=== PATIENT | female | born 1995 | race Caucasian/White ===

== ENCOUNTER 2016-12-04 09:34 | Emergency (ER) | payer BC, OTHER ==
[2016-12-04 10:00] LABS: Hematocrit 42.6 % (37.0-47.0); Hemoglobin 14.8 gm/dL (12.5-16.0); Mean Cell Volume 90.8 fl (78-100); Mean Corpuscular Hemoglobin 31.6 pg (27-31); Mean Corpuscular Hgb Conc 34.7 g/dl (32-36); Mean Platelet Volume 11.5 fl (6.0-9.5); Neutrophil # 7.3 K/mm3 (1.3-6.0); Neutrophil % 67.7 % (42-75.0); Platelet Count 211 K/mm3 (150-450); Red Blood Count 4.69 M/mm3 (4.2-5.4); Red Cell Distribution Width 11.6 % (11.5-14.0); White Blood Count 10.7 K/mm3 (4.0-10.5)
[2016-12-04 10:11] LABS: Prothrombin Time (Patient) 11.1 Seconds (9.4-11.4)
[2016-12-04 10:15] LABS: INR 1.07 INR (0.90-1.10); Partial Thrombolplastin Time 28.9 Seconds (24-32)
[2016-12-04 10:20] LABS: ALT 25 U/L (19-67); AST 19 U/L (0-48); Albumin * 4.4 gm/dl (3.4-5.0); Alkaline Phosphatase * 83 U/L (50-170); Anion Gap 14.5 mmol/L (6.8-13.8); Bilirubin, Total 0.6 mg/dL (0.0-1.1); Blood Urea Nitrogen 8 mg/dL (3-23); Ca. Corrected For Albumin 8.5 mg/dL (8.4-10.2); Calcium * 9.1 mg/dL (7.9-10.9); Carbon Dioxide 26.2 mmol/L (24-32.6); Chloride 102 mmol/L (97-106); Glucose * 98 mg/dL (70-110); Potassium 3.7 mmol/L (3.4-4.6); Sodium 139 mmol/L (132-142); Total Protein 8.2 gm/dL (6.2-8.2); Troponin I Less than 0.017 ng/ml (0.00-0.10)
[2016-12-04] MEDS ORDERED: MAG HYDROX/ALUMINUM HYD/SIMETH 30 ML UDC PO ONE (11:22)
[2016-12-04] MEDS ORDERED: BELLADONNA ALKALOIDS/PHENOBARB 60 ML BTL PO ONE (11:22)
[2016-12-04] MEDS ORDERED: LIDOCAINE HCL 20 ML UDC PO ONE (11:22)
--- NOTE | 2016-12-04 11:22 | ERNOTE ---
Chest Pain/Cardiac HPI Date of Service: 12/04/16 Chief Complaint: Chest Pain Time Seen by Provider: 12/04/16 11:06 Source: patient, RN notes reviewed Exam Limitations: no limitations Immunizations: IMMUNIZATION HX Immunizations Up to Date Yes History of Influenza Vaccine Yes Hx Pneumococcal Vaccination No Allergies/Adverse Reactions: Allergies No Known Allergies Allergy (Verified 12/04/16 09:48) Home Medications: HOME MEDICATIONS Levothyroxine Sodium [Synthroid] 75 mcg PO DAILY 12/04/16 [Last Taken Unknown] Polyethylene Glycol 3350 [Miralax] 17 gm PO DAILY 12/04/16 [Last Taken Unknown] Sertraline HCl [Zoloft] 50 mg PO DAILY 12/04/16 [Last Taken Unknown] Pain Score #1 Pain Score: 6 Narrative: 21 y/o female ambulatory to the ED for midsternal chest pain that has been intermittent for 2 weeks. The pain is usually accompanied by tachycardia and palpitations. She has not been taking anything for pain. She has been being treated for hypothyroidism for several years. She felt that her thyroid function was "off" and she was found to have a TSH of 8. Her medication was adjusted at that time. She also has anxiety and was started on sertraline at that time. She was also prescribed a beta sunita for tachycardia and anxiety, but she does not start this until tomorrow. She had strep throat approx a week and a half ago. The chest pain was occurring prior to the illness and has continued despite its resolution. Timing: intermittent Severity/Quality: moderate, aching Location: substernal, central Chest Pain Radiation: no radiation Activities at Onset: none Modifying Factors - Improves: Absent: eating, exercise, position, movement, rest Modifying Factors - Worsens: Absent: eating, exercise, position, movement, rest Nitro Today/Relief: no nitro taken today Aspirin Treatment Today: no aspirin today Associated Symptoms: Present: palpitations, abdominal pain. Absent: headache, dizziness, syncope, cough, shortness of breath, diaphoresis, fever/chills, heartburn, nausea, vomiting, weakness, back pain, swelling/lump in chest Prior Chest Pain/Cardiac Workup: Reports: no prior cardiac workup Prior Treatment: Reports: recently seen, treated by physician. Denies: currently on antibiotics Review of Systems - Review of Systems Constitutional: Present: recent illness, fatigue, malaise. Absent: diaphoresis EYE: Present: no symptoms reported ENT: Absent: nose congestion, sore throat Respiratory: Absent: shortness of breath, cough Cardiology: Present: chest pain, palpitations. Absent: syncope, edema Gastrointestinal/Abdominal: Present: abdominal pain. Absent: nausea, vomiting, diarrhea, constipation, eating less, drinking less Genitourinary: Present: no symptoms reported Musculoskeletal: Absent: back pain, muscle pain Skin: Absent: rash, lesions Neurological: Absent: headache, dizziness/light-headedness, tingling, tremors Endocrine: Present: no symptoms reported Hematologic/Lymphatic: Present: no symptoms reported Psych: Present: anxiety. Absent: depressed - Patient's Past Medical History Patient History - Medical: ADHD, Hypothyroidism Patient History - Cardiac/Respiratory: Asthma Patient History - Cancer: No Hx of Cancer Patient History - Surgical Procedures: T & A Patient History - Other: None LMP (females 10-50): last week - Social History Living Situations: significant other Abuse History: No History of abuse Psych History: No pertinent hx Smoking Status: Never smoker Do you dip or chew tobacco: No Alcohol Use: none Drug Use: none - Immunizations Immunizations Up to Date: Yes Hx Pneumococcal Vaccination: No History of Influenza Vaccine: Yes Physical Exam - Physical Exam General Appearance: Present: wd/wn, alert, no apparent distress Eye Exam: Normal inspection: bilateral Neck: Present: normal inspection, nontender, supple Respiratory: Present: no respiratory distress, normal breath sounds, no accessory muscle use, chest nontender, lungs clear Cardiovascular/Chest: Present: regular rate, rhythm, no murmur, normal peripheral pulses, tachycardia Gastrointestinal/Abdominal: Present: normal bowel sounds, nondistended, soft, tenderness - mild - epigastric Extremity Exam: Present: normal inspection, normal range of motion, no edema Neurological Exam: Present: alert, oriented, normal mood/affect, no motor/ sensory deficits Skin Exam: Present: normal color, warm/dry ED Progress - Results and Orders Patient's Lab Results:: I have reviewed the patient's lab results. - Vital Signs Patient's Vital Signs:: I have reviewed the patient's vital signs. Vital Signs: Vital Signs 12/04/16 12/04/16 12/04/16 09:35 09:47 10:20 Temperature 37.1 C Pulse Rate 117 H 115 H 93 Respiratory 15 20 Rate Blood Pressure 160/102 151/83 O2 Sat by Pulse 99 97 Oximetry 12/04/16 12/04/16 10:31 10:46 Temperature Pulse Rate 102 H 88 Respiratory 15 27 H Rate Blood Pressure 150/88 143/83 O2 Sat by Pulse 97 95 Oximetry - EKG EKG: other - sinus tach, nonspecific ST changes, no previous EKG read: Reviewed by me - X-Ray X-Ray #1 X-Ray: chest Interpretation: Reviewed by me X-ray Comments: TECHNIQUE: 4 views of the Left sided ribs. COMPARISONS: 05/13/2016 Ribs Unilateral LT * Cortical thickening and mineralized callus suggested at the anterolateral aspects of the left seventh, eighth, and ninth ribs suggestive of healing fractures. Visualized portions of the chest grossly normal. IMPRESSION: 1. Healing fractures of the anterolateral left seventh, eighth, ninth ribs. 2. Additional comments are as above. Electronically signed by Iwona Owen M.D.. - Progress/Reassessment Chief Complaint: Chest Pain Progress:: Improved Plan - Plan Plan: Pain decreased from 02/07 to 09/09 with GI cocktail. Discussed need for further evaluation of tachycardia, but also the issue of waiting until her recent med changes have had time to take effect. Has f/u with PCP next week. Agreeable to returning if pain worsens. Departure - Departure Clinical Impression: Chest pain Qualifiers: Chest pain type: unspecified Qualified Code(s): R07.9 - Chest pain, unspecified Disposition: Home Follow Up Needed Condition: Stable Instructions: Form - Excuse from Work, School, or Physical Activity, Chest Wall Pain Additional Instructions: Continue your current medications Return if symptoms worsen, otherwise see your PCP as scheduled OK to try Tylenol and/or ibuprofen for pain Referrals: Lupis Issa ARNP [Primary Care Provider] -
--- OUTSIDE RECORDS SUMMARY | 2016-12-04 11:33 | XMS REPORT | Continuity of Care Document ---
:1995 Author Organization [facility] ([facility]) Address [address] [place] [address] Phone [phone] Care Team Providers Name Role Phone Van Lo Primary Care Provider [phone] Source Comments This disclosure is being made pursuant to the Care Everywhere program, applicable federal and state laws, and may not contain all informaitonavailable regarding this patient.[facility] ([facility]) Active Allergies and Adverse Reactions No Known Allergies Current Medications Prescription Sig. Disp. Refills Start Date End Date Status omeprazole 20 mg Take 20 mg by mouth Active enteric coated capsule daily levothyroxine 50 mcg Take 50 mcg by Active tablet mouth every morning before breakfast lisdexamfetamine Take 30 mg by mouth Active (VYVANSE) 30 mg daily capsule norgestimate-ethinyl Take 1 tablet by Active estradiol triphasic mouth daily (ORTHO TRI-CYCLEN) tablet ALPRAZolam 0.25 mg Take 0.25 mg by Active tablet mouth daily as needed HYDROcodone-acetaminop Take 1 tablet by 20 tablet 0 08/28/2015 Active hen 5-325 mg per mouth every 4 hours tablet as needed for Pain DO NOT EXCEED 3,000 MG ACETAMINOPHEN PER DAY FROM ALL SOURCES ibuprofen 800 mg Take 1 tablet (800 20 tablet 0 08/28/2015 Active tablet mg total) by mouth every 6 hours as needed for Pain DO NOT EXCEED 3,200 MG IBUPROFEN PER DAY FROM ALL SOURCES chlorhexidine 0.12 % Rinse with 10 ML 473 mL 0 08/28/2015 Active oral rinse for 30 seconds twice daily for 10 days. Swish and spit out excess. Nothing by mouth for 30 minutes. ondansetron 4 mg Take 1 tablet (4 mg 12 tablet 0 08/28/2015 Active disintegrating tablet total) by mouth every 8 hours as needed Active Problems Problem Noted Date Hypothyroid 07/31/2015 Impacted teeth 07/31/2015 Social History Tobacco Use Types Packs/Day Years Used Date Never Smoker Smokeless Tobacco: Never Used Alcohol Use Drinks/Week oz/Week Comments No Last Filed Vital Signs Vital Sign Reading Time Taken Blood Pressure 139/75 08/28/2015 11:37 AM CAR MANAGER Pulse 98 08/28/2015 10:34 AM CAR MANAGER Temperature 37.1 C (98.8 F) 08/28/2015 10:34 AM CAR MANAGER Respiratory Rate 16 08/28/2015 10:34 AM CAR MANAGER Height 1.6 m (5' 3") 08/28/2015 10:30 AM CAR MANAGER Weight 65.5 kg (144 lb 6.4 oz) 08/28/2015 10:30 AM CAR MANAGER Body Mass Index 25.59 08/28/2015 10:30 AM CAR MANAGER Oxygen Saturation 100% 08/28/2015 11:37 AM CAR MANAGER Plan of Care Health Maintenance Due Date Last Done Comments Hepatitis B Vaccine (1 of 3 - Primary Series) 1996 HPV Vaccine (1 of 3 - Female/Unknown 3 Dose Series) 02/22/2007 Tdap Vaccine 02/22/2007 Meningococcal Vaccine (1 of 1) 2012 Lipid Disorder Screening 02/22/2014 MMR Vaccine 02/22/2014 Td Vaccine 02/22/2014 Varicella Vaccine (1 of 2 - Adult - No Evidence of 02/22/2014 Immunity) Influenza Vaccine: Seasonal (#1) 03/31/2016 Results from Last 3 Months Not on file
[2016-12-04 12:28] VITALS: BP 147/91
== END 2016-12-04 12:12 | disposition home or self-care (01) ==
LOC: ER 09:34
DX: R07.9 Chest pain, unspecified (principal); E03.9 Hypothyroidism, unspecified

== ENCOUNTER 2017-09-10 10:52 | Emergency (ER) | payer OTHER ==
[2017-09-10 11:19] VITALS: BP 139/80
== END 2017-09-10 11:40 | disposition left against medical advice (07) ==
LOC: ER 10:52
DX: Z53.21 Procedure and treatment not carried out due to patient leaving prior to being seen by health care provider (principal)

== ENCOUNTER 2018-04-08 14:54 | Observation (INO) ==
[2018-04-08] MEDS ORDERED: RINGER'S SOLUTION,LACTATED 1,000 ML IV PRN (15:15)
[2018-04-08] MEDS ORDERED: PENICILLIN G POTASSIUM 5 MILLIONUNT in DEXTROSE 5 % IN WATER 100 ML IV ONE ×2 (17:34)
[2018-04-08] MEDS ORDERED: BETAMETHASONE ACETATE,SOD PHOS 6 MG/ML VIAL IM SCH (17:45)
[2018-04-08] MEDS: NIFEdipine 10 MG CAPSULE PO PRN ×2 (17:56→21:47)
[2018-04-08] MEDS: RINGER'S SOLUTION,LACTATED 1,000 ML IV PRN ×2 (17:56→21:08)
[2018-04-08 17:57] LABS: Hematocrit 34.3 % (37.0-47.0); Hemoglobin 11.4 gm/dL (12.5-16.0); Mean Corpuscular Hemoglobin 30.2 pg (27-31); Mean Corpuscular Hgb Conc 33.2 g/dl (32-36); Mean Platelet Volume 11.9 fl (8-12.5); Neutrophil # 7.2 K/mm3 (1.3-6.0); Neutrophil % 67.6 % (42-75.0); Platelet Count 196 K/mm3 (150-450); Red Blood Count 3.77 M/mm3 (4.2-5.4); Red Cell Distribution Width 12.4 % (11.5-14.0); White Blood Count 10.7 K/mm3 (4.0-10.5)
[2018-04-08] MEDS: BUTORPHANOL TARTRATE 2 MG/ML VIAL IV PRN ×2 (18:49→23:03)
[2018-04-08] MEDS ORDERED: TOPIRAMATE 50 MG TABLET ONE (20:56)
[2018-04-08] MEDS ORDERED: METOPROLOL SUCCINATE 25 MG TABLET.SA PO SCH (21:00)
[2018-04-08] MEDS ORDERED: PENICILLIN G POTASSIUM 2.5 MILLIONUNT in DEXTROSE 5 % IN WATER 100 ML IV SCH ×2 (21:37)
[2018-04-08 21:48] VITALS: BP 156/62
--- NOTE | 2018-04-08 23:23 | HP ---
Chief Complaint - Chief Complaint Date of Service: 04/08/18 Time of Service: 23:22 Chief Complaint: painful contractions History of Present Illness: 23 yo at 33 6/7 wks presents to L&D complaining of contractions of increased intensity. Patient originally presented to office for routine OB visit/NST due to CHTN with PSVT where she was noted to have contractions q8-10 min. She was sent to L&D for prolonged monitoring. During this time her contractions increased in intensity and frequency and so she was admitted for 23 hour observation for threatened PTL. This complicated by asthma, CHTN, tachycardia, hypothyroidism, threatened PTL and AADHD/anxiety/depression. Rh positive RI GBS pending Medical History (Last Updated 03/09/18 @ 08:10 by Azucena Ward) Anxiety and depression Onset Date: Unknown Hypertension Onset Date: Unknown Hypothyroidism Onset Date: Unknown ADHD Onset Date: Unknown Asthma Onset Date: ~2000 Surgical History: Surgical History (Last Updated 03/09/18 @ 08:10 by Azucena Boss) History of tonsillectomy and adenoidectomy Onset Date: Unknown Family History: Family History (Last Updated 03/09/18 @ 08:16 by Azucena Boss) Father Alive and well Grandfather Cancer Grandfather Diabetes Eye cancer Grandmother Diabetes Cancer Hypertension Obesity Mother Alive and well Social History: Preferred Language Sami Do you have any latter day or No cultural preference? Abuse History No History of abuse Psych History Hx of Depression,Currently on Meds Review Of Systems (GEN) - Review of Systems EENTM: Present: No Symptoms Reported Respiratory: Present: No Symptoms Reported Cardiac: Present: No Symptoms Reported Abdominal: Present: Other - contractions Genitourinary: Present: No Symptoms Reported Musculoskeletal: Present: No Symptoms Reported Neurological: Present: No Symptoms Reported Skin: Present: No Symptoms Reported Endocrine: Present: No Symptoms Reported Immunizations: IMMUNIZATION HX Immunizations Up to Date Yes History of Influenza Vaccine No Hx Pneumococcal Vaccination No Allergies/Adverse Reactions: Allergies Allergy/AdvReac Type Severity Reaction Status Date / Time No Known Allergies Allergy Verified 04/08/18 15:19 Home Medications: HOME MEDICATIONS Levothyroxine Sodium [Synthroid] 75 mcg PO DAILY 12/04/16 [Last Taken 04/08/18] Venlafaxine HCl [Venlafaxine HCl ER] 150 mg PO DAILY 02/22/18 [Last Taken ] vitamin,calcium,luoxrubl-gocu-guxsz acid tablet 1 tab PO DAILY [Last Taken 04/07/18] Metoprolol Succinate [Toprol Xl] 37.5 mg PO BID 04/08/18 [Last Taken 04/08/18 12 :00] Exam - Exam Vital Signs: Vital Signs - Last Taken Temp 36.6 C 04/08/18 15:45 Pulse 82 04/08/18 21:47 Resp 16 04/08/18 15:45 BP 156/62 H 04/08/18 21:47 Pulse Ox 98 04/08/18 15:45 Constitutional: Present: Alert, Oriented x3, Cooperative, Mild distress, Overweight ENT Exam: Present: hearing grossly normal Neck: Present: non-tender Breasts: Present: Exam deferred Respiratory: Present: lungs clear, no respiratory distress Cardiovascular/Chest: Present: normal peripheral pulses, regular rate, rhythm, no chest tenderness, no edema Abdomen: Present: soft, nontender, other - gravid /Rectal: Present: Other - cervix FT/50/-3 Extremity: Present: non-tender, no pedal edema, no calf tenderness Skin Exam: Present: normal color, warm/dry, no cyanosis Neurologic: Present: normal mood/affect, oriented x 3 Appearance: Present: appropriate appearance, appropriate insight Eye contact: Present: cooperative, good eye contact, normal speech Thoughts: Present: normal thought pattern Diagnostic Studies: Abnormal Lab Results 04/08/18 Range/Units 17:55 WBC 10.7 H (4.0-10.5) K/mm3 RBC 3.77 L (4.2-5.4) M/mm3 Hgb 11.4 L (12.5-16.0) gm/dL Hct 34.3 L (37.0-47.0) % Immature Gran % (Auto) 1.60 H (0.001-0.429) % Immature Gran # (Auto) 0.17 H (0.000-0.0310) K/mm3 Lymphocytes % 19.1 L (20-51) % Monocytes % 10.5 H (0.0-9) % Neutrophils # 7.2 H (1.3-6.0) K/mm3 Monocytes # 1.1 H (0.0-1.0) k/mm3 Laboratory Results WBC 10.7 K/mm3 (4.0-10.5) H 04/08/18 17:55 RBC 3.77 M/mm3 (4.2-5.4) L 04/08/18 17:55 Hgb 11.4 gm/dL (12.5-16.0) L 04/08/18 17:55 Hct 34.3 % (37.0-47.0) L 04/08/18 17:55 MCV 91.0 fl (78-100) 04/08/18 17:55 MCH 30.2 pg (27-31) 04/08/18 17:55 MCHC 33.2 g/dl (32-36) 04/08/18 17:55 RDW 12.4 % (11.5-14.0) 04/08/18 17:55 Plt Count 196 K/mm3 (150-450) 04/08/18 17:55 MPV 11.9 fl (8-12.5) 04/08/18 17:55 Immature Gran % (Auto) 1.60 % (0.001-0.429) H 04/08/18 17:55 Immature Gran # (Auto) 0.17 K/mm3 (0.000-0.0310) H 04/08/18 17:55 Neutrophils % 67.6 % (42-75.0) 04/08/18 17:55 Lymphocytes % 19.1 % (20-51) L 04/08/18 17:55 Monocytes % 10.5 % (0.0-9) H 04/08/18 17:55 Eosinophils % 0.9 % (0.0-3.0) 04/08/18 17:55 Basophils % 0.3 % (0.0-1.0) 04/08/18 17:55 Nucleated RBC % 0.0 k/mm3 (0-1) 04/08/18 17:55 Neutrophils # 7.2 K/mm3 (1.3-6.0) H 04/08/18 17:55 Lymphocytes # 2.04 k/mm3 (1.5-3.5) 04/08/18 17:55 Monocytes # 1.1 k/mm3 (0.0-1.0) H 04/08/18 17:55 Eosinophils # 0.1 k/mm3 (0.0-0.7) 04/08/18 17:55 Absolute Basophils 0.0 k/mm3 (0.0-0.1) 04/08/18 17:55 NST reactive Assessment/Plan - Assessment/Plan (1) Threatened labor Assessment: 23h observation. IV PCN for GBS prophylaxis. Betamethasone (1st dose at 1757 on 04/08/18). Nifedipine 20mg q4-6h PRN contractions. Problem: Acute Qualifiers: Trimester: third trimester Qualified Code(s): O47.03 - False labor before 37 completed weeks of gestation, third trimester (2) Chronic hypertension during Problem: Acute (3) Hypothyroid in , antepartum Problem: Acute (4) Tachycardia with heart rate 100-120 beats per minute Problem: Acute
[2018-04-08 23:38] LABS: Albumin * 2.5 gm/dl (3.4-5.0); Anion Gap 14.8 mmol/L (6.8-13.8); BUN/Creatinine Ratio 15.1 (9.0-21.6); Bilirubin, Total 0.2 mg/dL (0.0-1.1); Ca. Corrected For Albumin 9.6 mg/dL (8.4-10.2); Calcium * 8.7 mg/dL (7.9-10.9); Carbon Dioxide 23.3 mmol/L (24-32.6); Potassium 4.1 mmol/L (3.4-4.6); Total Protein 5.8 gm/dL (6.2-8.2)
[2018-04-09] MEDS ORDERED: CALCIUM GLUCONATE 4.65 MEQ/10 ML VIAL IV PRN (00:20)
[2018-04-09] MEDS ORDERED: MAGNESIUM SULFATE IN WATER 50 ML, MAGNESIUM SULFATE IN WATER 50 ML IV ONE ×2 (00:20)
[2018-04-09] MEDS ORDERED: MAGNESIUM SULFATE IN WATER 1,000 ML IV SCH (00:30)
[2018-04-09 00:42] LABS: Random Urine Total Protein Less than 6.0 mg/dL (0-12)
[2018-04-09 00:48] LABS: Mean Cell Volume 90.9 fl (78-100); Mean Corpuscular Hemoglobin 30.3 pg (27-31); Mean Corpuscular Hgb Conc 33.3 g/dl (32-36); Mean Platelet Volume 11.9 fl (8-12.5); Neutrophil # 11.5 K/mm3 (1.3-6.0); Neutrophil % 87.7 % (42-75.0); Platelet Count 226 K/mm3 (150-450); Red Blood Count 4.29 M/mm3 (4.2-5.4); Red Cell Distribution Width 12.2 % (11.5-14.0); White Blood Count 13.2 K/mm3 (4.0-10.5)
--- NOTE | 2018-04-09 00:54 | PN ---
Subjective - Date and Time Seen Date: 04/09/18 Time: 00:26 Subjective Narrative: Patient complains of worsening pain with contractions. Also worsening headache. Denies visual changes or epigastric pain. Objective - Review of Systems Generalized/Overall Review: Reports: No Symptoms Reported EENTM: Reports: No Symptoms Reported Respiratory: Reports: No Symptoms Reported Cardiac: Reports: No Symptoms Reported Abdominal: Reports: Other - contractions Genitourinary Symptoms: Reports: No Symptoms Reported Musculoskeletal Complaints: Reports: No Symptoms Reported Neurological: Reports: Headache Skin: Reports: No Symptoms Reported Endocrine: Reports: No Symptoms Reported - Vitals Vitals: Last Vital Signs Temp 36.6 C 04/08/18 15:45 Pulse 82 04/08/18 21:47 Resp 16 04/08/18 15:45 BP 156/62 H 04/08/18 21:47 Pulse Ox 98 04/08/18 15:45 - Abnormal Lab Findings Abnormal Lab Findings: Abnormal Lab Results 04/08/18 04/08/18 Range/Units 17:55 23:25 WBC 10.7 H (4.0-10.5) K/mm3 RBC 3.77 L (4.2-5.4) M/mm3 Hgb 11.4 L (12.5-16.0) gm/dL Hct 34.3 L (37.0-47.0) % Immature Gran % (Auto) 1.60 H (0.001-0.429) % Immature Gran # (Auto) 0.17 H (0.000-0.0310) K/mm3 Lymphocytes % 19.1 L (20-51) % Monocytes % 10.5 H (0.0-9) % Neutrophils # 7.2 H (1.3-6.0) K/mm3 Monocytes # 1.1 H (0.0-1.0) k/mm3 Carbon Dioxide 23.3 L (24-32.6) mmol/L Anion Gap 14.8 H (6.8-13.8) mmol/L Est GFR (Non-Af Amer) 153 H (60-130) mL/min ALT 16 L (19-67) U/L Total Protein 5.8 L (6.2-8.2) gm/dL Albumin 2.5 L (3.4-5.0) gm/dl - Exam Constitutional: Present: Alert, Oriented x3, Cooperative, Mild distress, Obese ENT Exam: Present: hearing grossly normal Breasts: Present: Exam deferred Respiratory: Present: lungs clear, no respiratory distress, No wheezing Cardiovascular/Chest: Present: normal peripheral pulses, no edema, tachycardia Abdomen: Present: soft, no rebound tenderness /Rectal: Present: Other - gravid uterus, upper fundus tender Extremity: Present: non-tender, no pedal edema, no calf tenderness Skin Exam: Present: normal color, warm/dry, no cyanosis Lymphatic: Present: no adenopathy Neurologic: Present: normal mood/affect, oriented x 3, other - DTR 3+, 3 beat clonus Appearance: Present: appropriate appearance Eye contact: Present: cooperative, good eye contact, normal speech Assessment/Plan - Problems/Diagnosis (1) Threatened labor Problem: Acute Qualifiers: Trimester: third trimester Qualified Code(s): O47.03 - False labor before 37 completed weeks of gestation, third trimester Narrative: Cervix is slowly changing from FT/50/-3 to 1-2/50/-2 despite tocolytics. Contractions continue to increase in frequency and intensity. Stadol 2mg IV q 2h provides temporary partial relief. (2) Chronic hypertension during Problem: Acute (3) Hypothyroid in , antepartum Problem: Acute (4) Tachycardia with heart rate 100-120 beats per minute Problem: Acute (5) Pre-eclampsia complicating hypertension Problem: Acute Narrative: Blood pressures increasing despite on 2 anti-hypertensive agents and developing severe features of headache and hyper-reflexia with clonus. Increased risk for abruption with contractions q [address] Hernandez at [facility] who is willing to accept transfer. Will transfer via ambulance with patient on magnesium sulfate IV (6g load, 2g/h) and continue IV PCN for GBS prophylaxis since cx results pending. S/p betamethasone at 1757 on 04/08/18.
[2018-04-09] MEDS ORDERED: LEVOTHYROXINE SODIUM 75 MCG TABLET PO SCH (07:00)
[2018-04-09] MEDS ORDERED: PRENATAL VITS96/IRON FUM/FOLIC 1 TAB TABLET PO SCH (09:00)
[2018-04-09] MEDS ORDERED: VENLAFAXINE HCL 150 MG CAP.SR.24H PO SCH (09:00)
== END 2018-04-09 01:25 | disposition short-term general hospital (02) ==
LOC: OB 14:54 → OBCLINIC 14:54
PROVIDERS: ADMIT Obstetrics & Gynecology; ATTEND Obstetrics & Gynecology
CPT/HCPCS: 36415; 59025; 80053; 82570; 84155; 84156; 85025; 96361; 96365; 96366; 96372; 96375; 96376; G0378

== ENCOUNTER 2018-05-01 13:56 | Inpatient (IN) ==
[2018-05-01] MEDS ORDERED: RINGER'S SOLUTION,LACTATED 1,000 ML IV ONE (14:08)
[2018-05-01] MEDS ORDERED: OXYTOCIN/DEXTROSE 5%-WATER 30 UNITS/500 ML BAG IV ONE (14:13)
[2018-05-01] MEDS ORDERED: BUPIVACAINE HCL/0.9 % NACL/PF 250 ML EP PRN (16:36)
[2018-05-01] MEDS ORDERED: NALOXONE HCL 1 MG/1 ML SYRG IV PRN (16:36)
[2018-05-01] MEDS ORDERED: ONDANSETRON HCL/PF 2 MG/ML VIAL IV PRN (16:36)
[2018-05-01] MEDS ORDERED: BUPIVACAINE HCL/PF 30 ML VIAL EP SCH (16:45)
--- NOTE | 2018-05-01 17:19 | ANES ---
Anesthesia Pre Procedure Eval Vitals/Labs: Last Vital Signs Temp 36.6 C 05/01/18 14:29 Pulse 82 05/01/18 14:29 Resp 18 05/01/18 14:29 BP 163/107 H 05/01/18 14:29 Pulse Ox 100 05/01/18 14:29 HOME MEDICATIONS Levothyroxine Sodium [Synthroid] 75 mcg PO DAILY 12/04/16 [Last Taken 04/30/18 08:00] Venlafaxine HCl [Venlafaxine HCl ER] 150 mg PO DAILY 02/22/18 [Last Taken 08:00] vitamin,calcium,czprkciz-pcjm-hggzf acid tablet 1 tab PO DAILY [Last Taken 04/30/18 08:00] metoprolol succinate ER 25 mg tablet,extended release 24 hr 37.5 mg PO BID #60 tab 04/26/18 [Last Taken 04/30/18 08:00] Allergies/Adverse Reactions: Allergies Allergy/AdvReac Type Severity Reaction Status Date / Time No Known Allergies Allergy Verified 05/01/18 00:21 - Planned Procedure Planned Procedure: labor epidural Medication List Reviewed:: Yes Allergies Verified: Yes Medical History (Last Reviewed 04/29/18 @ 11:21 by Briseida Page) Anxiety and depression Onset Date: Unknown Hypertension Onset Date: Unknown Hypothyroidism Onset Date: Unknown ADHD Onset Date: Unknown Asthma Onset Date: ~2000 Surgical History (Last Reviewed 04/26/18 @ 10:03 by Andres Franco) History of tonsillectomy and adenoidectomy Onset Date: Unknown Family History (Last Reviewed 04/26/18 @ 10:03 by Andres Franco) Father Alive and well Grandfather Cancer Grandfather Diabetes Eye cancer Grandmother Diabetes Cancer Hypertension Obesity Mother Alive and well - Anesthesia Assessment and Plan ASA Class: PS, II Anesthesia Type Plan: Epidural
--- NOTE | 2018-05-01 17:39 | ANES ---
Post Anesthesia Assessment - Vital Signs Vitals: Last Vital Signs Temp 36.6 C 05/01/18 17:36 Pulse 84 05/01/18 17:36 Resp 20 05/01/18 17:36 BP 170/92 H 05/01/18 17:36 Pulse Ox 98 05/01/18 17:36 Airway Patency: Normal - Mental Status Level Of Consciousness: Awake - N/V Assessment Nausea/Vomiting Presence: None Dehydration:: No
--- NOTE | 2018-05-01 17:39 | ANES ---
Anesthesia Procedure Note Procedure Note: ANESTHESIA PROCEDURE NOTE Date of Procedure: 05/01/2018. Time of procedure: 1720. Performed by: Cody Palencia CRNA Lion Tamer: None. Preprocedure diagnosis: Active labor. Post procedure diagnosis: Same. Procedure: Insertion of labor epidural. Indications: The patient is a 23 -year-old female in active labor requesting labor epidural for pain management. Findings: See below. Details of the procedure: The patient was placed in a sitting position. DuraPrep as well as Betadine swabs X3 was applied to the patient's back. Patient was then draped in a sterile fashion. Lidocaine 1% was infiltrated to the skin and subcutaneous tissues at the level of the L3-4 interspace. The epidural space was identified using a 18-gauge Tuohy needle with loss-of- resistance technique. Epidural catheter was inserted to a depth of 13 centimeters at skin. Negative test dose was elicited using 3 mL of 1.5% preservative-free lidocaine plus epinephrine 1 200,000. The epidural catheter was then taped and secured in place. A loading dose of 8 mL of 0.25% preservative-free bupivacaine was administered to the epidural catheter after negative aspiration for blood and CSF. EBL: Minimal. Fluids: N/A. Specimen: N/A. Post procedure condition: The patient tolerated the procedure well. No complications were noted. Thank you for this consultation. Cody Palencia CRNA
--- NOTE | 2018-05-01 21:42 | HP ---
Chief Complaint - Chief Complaint Date of Service: 05/01/18 Time of Service: 21:25 Chief Complaint: Leaking fluid, contractions History of Present Illness: 23 yo at 37 1/7 wks presents to L&D complaining of leaking fluid since 130 today. Patient has been michi frequently for the past few weeks and was just evaluated in L&D for possible labor last pm. This complicated by anxiety/depression, ADHD, asthma, chronic hypertension, hypothyroid, SVT, and thrreatened labor. Rh positive Rubella immune GBS negative Medical History (Last Reviewed 04/29/18 @ 11:21 by Briseida Page) Anxiety and depression Onset Date: Unknown Hypertension Onset Date: Unknown Hypothyroidism Onset Date: Unknown ADHD Onset Date: Unknown Asthma Onset Date: ~2000 Surgical History: Surgical History (Last Reviewed 04/26/18 @ 10:03 by Andres Franco) History of tonsillectomy and adenoidectomy Onset Date: Unknown Family History: Family History (Last Reviewed 04/26/18 @ 10:03 by Andres Franco) Father Alive and well Grandfather Cancer Grandfather Diabetes Eye cancer Grandmother Diabetes Cancer Hypertension Obesity Mother Alive and well Social History: Preferred Language Bel[place]ian Abuse History No History of abuse Psych History Hx of Depression,Currently on Meds Review Of Systems (GEN) - Review of Systems Generalized/Overall Review: Present: No Symptoms Reported EENTM: Present: No Symptoms Reported Respiratory: Present: No Symptoms Reported Cardiac: Present: No Symptoms Reported Abdominal: Present: No Symptoms Reported Genitourinary: Present: Other - contractions, leaking clear vaginal fluid Musculoskeletal: Present: No Symptoms Reported Neurological: Present: No Symptoms Reported Skin: Present: No Symptoms Reported Endocrine: Present: No Symptoms Reported Immunizations: IMMUNIZATION HX Immunizations Up to Date Yes History of Influenza Vaccine No Hx Pneumococcal Vaccination No Allergies/Adverse Reactions: Allergies Allergy/AdvReac Type Severity Reaction Status Date / Time No Known Allergies Allergy Verified 05/01/18 00:21 Home Medications: HOME MEDICATIONS Levothyroxine Sodium [Synthroid] 75 mcg PO DAILY 12/04/16 [Last Taken 04/30/18 08:00] Venlafaxine HCl [Venlafaxine HCl ER] 150 mg PO DAILY 02/22/18 [Last Taken 08:00] vitamin,calcium,bilycopx-tymp-pvlos acid tablet 1 tab PO DAILY [Last Taken 04/30/18 08:00] metoprolol succinate ER 25 mg tablet,extended release 24 hr 37.5 mg PO BID #60 tab 04/26/18 [Last Taken 04/30/18 08:00] Exam - Exam Vital Signs: Vital Signs - Last Taken Temp 36.6 C 05/01/18 17:36 Pulse 84 05/01/18 17:36 Resp 20 05/01/18 17:36 BP 170/92 H 05/01/18 17:36 Pulse Ox 98 05/01/18 17:36 Repeat blood pressures 140s-189/90's-111 Constitutional: Present: Alert, Oriented x3, Cooperative, Mild distress ENT Exam: Present: hearing grossly normal Breasts: Present: Exam deferred Respiratory: Present: lungs clear, no respiratory distress Cardiovascular/Chest: Present: normal peripheral pulses, regular rate, rhythm, no edema Abdomen: Present: soft, nontender, no rebound tenderness, other - gravid /Rectal: Present: Other - cervix 3/90/-2, gross ROM, clear vaginal fluid, amniostat positive Extremity: Present: non-tender, no pedal edema, no calf tenderness Skin Exam: Present: normal color, warm/dry, no cyanosis Neurologic: Present: alert, normal mood/affect, oriented x 3 Appearance: Present: appropriate appearance, appropriate insight Eye contact: Present: cooperative, good eye contact, normal speech Thoughts: Present: normal thought pattern Assessment/Plan - Assessment/Plan (1) Chronic hypertension during Assessment: Admitted for management of labor. Will give metoprolol 50mg PO x1 since she missed this evening dose of meds. Pitocin augmentation PRN. Epidural PRN. Problem: Acute (2) Hypothyroid in , antepartum Problem: Acute (3) SROM (spontaneous rupture of membranes) Problem: Acute
[2018-05-01] MEDS ORDERED: METOPROLOL SUCCINATE 50 MG TABLET.SA PO SCH (21:45)
[2018-05-01] MEDS ORDERED: LABETALOL HCL 5 MG/ML VIAL IV ONE ×3 (21:47→22:45)
[2018-05-02] MEDS ORDERED: LABETALOL HCL 5 MG/ML VIAL IV ONE ×2 (00:13→01:18)
--- NOTE | 2018-05-02 00:27 | OR ---
Operative Report - Dictated Report Narrative: Spontaneous vaginal delivery of viable male at 2331 on 05/01/2018 with Apgars 6 and 9, weighing 3068 g in JACKELYN position with tight nuchal cord 1. Cord clamping delayed approximately 1 minute Placenta delivered complete, intact, with three vessel cord Estimated blood loss: less than 50 ml Anesthesia: epidural Lacerations: First-degree vaginal laceration (1 cm) repaired with 3-0 Vicryl Rapide
--- NOTE | 2018-05-02 00:30 | PN ---
Progess Note - Interim Date: 05/02/18 Time: 00:28 Narrative: 05/02/18 00:28 Patient received labetalol 10 mg IV 2 doses for severely elevated blood pressures before delivery. I hope after delivery they would come down but the systolic blood pressures have remained in the 170s - 180s. Will repeat IV dose of labetalol 20 mg 1. History for MU Definition: * The number of deliveries resulting in a live the patient experienced prior to current hospitalization * The previous delivery of live twins or any live multiple gestation is considered one live event. *If primagravida or nulliparous is documented select zero for the number of previous live births. Live Events: 0
[2018-05-02 00:47] LABS: Hematocrit 33.2 % (37.0-47.0); Hemoglobin 10.8 gm/dL (12.5-16.0); Mean Cell Volume 92.7 fl (78-100); Mean Corpuscular Hemoglobin 30.2 pg (27-31); Mean Corpuscular Hgb Conc 32.5 g/dl (32-36); Mean Platelet Volume 11.7 fl (8-12.5); Neutrophil # 10.1 K/mm3 (1.3-6.0); Neutrophil % 76.9 % (42-75.0); Platelet Count 137 K/mm3 (150-450); Red Blood Count 3.58 M/mm3 (4.2-5.4); Red Cell Distribution Width 13.7 % (11.5-14.0); White Blood Count 13.2 K/mm3 (4.0-10.5)
[2018-05-02 01:02] LABS: Anion Gap 9.1 mmol/L (6.8-13.8); BUN/Creatinine Ratio 14.3 (9.0-21.6); Bilirubin, Total 0.3 mg/dL (0.0-1.1); Ca. Corrected For Albumin 9.7 mg/dL (8.4-10.2); Calcium * 8.4 mg/dL (7.9-10.9); Carbon Dioxide 26.3 mmol/L (24-32.6); Potassium 3.4 mmol/L (3.4-4.6); Total Protein 5.6 gm/dL (6.2-8.2)
[2018-05-02 01:49] LABS: Random Urine Total Protein 11.9 mg/dL (0-12)
[2018-05-02] MEDS ORDERED: CALCIUM GLUCONATE 4.65 MEQ/10 ML VIAL IV PRN (02:05)
[2018-05-02] MEDS ORDERED: MAGNESIUM SULFATE IN WATER 50 ML IV ONE ×2 (02:05→02:45)
[2018-05-02] MEDS ORDERED: MAGNESIUM SULFATE IN WATER 1,000 ML IV SCH (02:15)
[2018-05-02] MEDS ORDERED: oxyCODONE HCL/ACETAMINOPHEN 1 TAB TABLET PO PRN (04:23)
[2018-05-02] MEDS ORDERED: IBUPROFEN 800 MG TABLET PO PRN (04:23)
[2018-05-02] MEDS: LEVOTHYROXINE SODIUM 75 MCG TABLET PO SCH (08:14)
[2018-05-02] MEDS: VENLAFAXINE HCL 150 MG CAP.SR.24H PO SCH (09:18)
[2018-05-02] MEDS: METOPROLOL SUCCINATE 50 MG TABLET.SA PO SCH ×2 (09:19→21:22)
[2018-05-02] MEDS: PRENATAL VITS96/IRON FUM/FOLIC 1 TAB TABLET PO SCH (09:20)
--- NOTE | 2018-05-02 10:06 | PN ---
Subjective - Date and Time Seen Date: 05/02/18 Time: 09:59 Objective - Review of Systems Generalized/Overall Review: Reports: No Symptoms Reported EENTM: Reports: No Symptoms Reported Respiratory: Reports: No Symptoms Reported Cardiac: Reports: No Symptoms Reported Abdominal: Reports: No Symptoms Reported Genitourinary Symptoms: Reports: Other - cramping Neurological: Reports: No Symptoms Reported Skin: Reports: No Symptoms Reported Endocrine: Reports: No Symptoms Reported - Vitals Vitals: Last Vital Signs Temp 36.6 C 05/02/18 08:00 Pulse 120 H 05/02/18 09:24 Resp 20 05/02/18 09:24 BP 146/84 H 05/02/18 09:24 Pulse Ox 100 05/02/18 09:24 Patient denies headache, visual changes, epigastric pain, or excessive vaginal bleeding. All but one blood pressure through the night have been in mild range, diuresing very well (already doubled urine output) Lochia wnl Abdomen - soft, nontender Uterus - firm, at umbilicus - 1 No calf tenderness, DTR-2/4, no clonus Impression: day #1 - s/p spontaneous vaginal delivery. Chronic hypertension with superimposed severe preeclampsia. Hypothyroidism. Anxiety/ depression. Plan: Continue magnesium sulfate for full 24 hours. Metoprolol increased to 50 mg twice a day. - Abnormal Lab Findings Abnormal Lab Findings: Abnormal Lab Results 05/02/18 05/02/18 05/02/18 Range/Units 00:45 00:45 01:30 WBC 13.2 H D (4.0-10.5) K/mm3 RBC 3.58 L (4.2-5.4) M/mm3 Hgb 10.8 L (12.5-16.0) gm/dL Hct 33.2 L (37.0-47.0) % Plt Count 137 L (150-450) K/mm3 Immature Gran % (Auto) 1.10 H (0.001-0.429) % Immature Gran # (Auto) 0.15 H (0.000-0.0310) K/mm3 Neutrophils % 76.9 H (42-75.0) % Lymphocytes % 13.6 L (20-51) % Neutrophils # 10.1 H (1.3-6.0) K/mm3 ALT 16 L (19-67) U/L Total Protein 5.6 L (6.2-8.2) gm/dL Albumin 2.0 L (3.4-5.0) gm/dl Ur Random Creatinine 32.8 L (60-200) mg/dL U [place] Prot/Creat Ratio 363 H (0-199) mg/gm Cauti Physician Documentation - Urinary Catheter Management Urethral ([place]) Date of Insertion: 05/02/18 Time of Insertion: 02:45 Date of Removal: 05/01/18 Time of Removal: 23:05 Assessment/Plan - Problems/Diagnosis (1) Chronic hypertension during Problem: Acute (2) Hypothyroid in , antepartum Problem: Acute (3) SROM (spontaneous rupture of membranes) Problem: Acute
--- NOTE | 2018-05-03 04:48 | PN ---
Subjective - Date and Time Seen Date: 05/03/18 Time: 04:46 Objective - Vitals Vitals: Last Vital Signs Temp 36.4 C 05/02/18 23:25 Pulse 98 05/03/18 00:07 Resp 16 05/03/18 00:07 BP 138/74 05/03/18 00:07 Pulse Ox 100 05/03/18 00:07 Patient denies complaints. Lochia wnl Abdomen - soft, nontender Uterus - firm, at umbilicus - 2 No calf tenderness Impression: day #2 - s/p spontaneous vaginal delivery. Severe preeclampsia-resolved. Hypothyroid-stable. Anxiety/depression-stable. Plan: Routine discharge instructions with preeclampsia precautions. Follow-up in office in 1 week for blood pressure check. Cauti Physician Documentation - Urinary Catheter Management Urethral ([place]) Date of Insertion: 05/02/18 Time of Insertion: 02:45 Date of Removal: 05/01/18 Time of Removal: 23:05 Assessment/Plan - Problems/Diagnosis (1) Chronic hypertension during Problem: Acute (2) Hypothyroid in , antepartum Problem: Acute (3) SROM (spontaneous rupture of membranes) Problem: Acute
[2018-05-03] MEDS: VENLAFAXINE HCL 150 MG CAP.SR.24H PO SCH (08:47)
[2018-05-03] MEDS: METOPROLOL SUCCINATE 50 MG TABLET.SA PO SCH (08:48)
[2018-05-03] MEDS: LEVOTHYROXINE SODIUM 75 MCG TABLET PO SCH (08:48)
[2018-05-03] MEDS: PRENATAL VITS96/IRON FUM/FOLIC 1 TAB TABLET PO SCH (08:48)
[2018-05-03 15:09] VITALS: BP 141/79
== END 2018-05-03 14:50 | disposition home or self-care (01) | DRG 775 ==
LOC: OB 13:56
PROVIDERS: ADMIT Obstetrics & Gynecology; ATTEND Obstetrics & Gynecology
CPT/HCPCS: 36415; 59025; 80053; 82570; 84155; 84156; 85025; 88307